=== PATIENT | female | born 1985 | race Caucasian/White ===

== ENCOUNTER → 2022-04-23 | Outpatient (CLI) | payer OTHER ==
--- NOTE | 2022-04-24 09:35 | US ---
EXAMINATION TYPE: US pelvic complete DATE OF EXAM: 04/23/2022 COMPARISON: NONE CLINICAL HISTORY: N81.4 UTEROVAGINAL PROLAPSE. Uterine prolapse per order. Hx 1 , 2 C section s, tubal ligation. . TECHNIQUE: Transabdominal (TA). Transabdominal sonographic images of the pelvis were acquired. Date of LMP: Unknown per patient. EXAM MEASUREMENTS: Uterus: 7.3 x 7.3 x 5.1 cm. Endometrial Stripe: 0.66 cm Right Ovary: 3.0 x 1.9 x 1.9 cm Left Ovary: 4.5 x 2.0 x 1.6 cm 1. Uterus: Anteverted 2. Endometrium: Measures 0.66 cm, LMP unknown 3. Right Ovary: No abnormalities seen. 4. Left Ovary: No abnormalities seen 5. Bilateral Adnexa: Appear wnl 6. Posterior cul-de-sac: Appears wnl Urinary bladder is somewhat lucent wall is normal. IMPRESSION: 1. No suspicious acute changes ultrasound pelvis
== END | disposition home or self-care (01) ==
LOC: RADUSWWP 15:56
PROVIDERS: ATTEND Family Medicine
DX: N81.4 Uterovaginal prolapse, unspecified (principal)
CPT/HCPCS: 76856